=== PATIENT | male | born 1985 | race Caucasian/White ===

== ENCOUNTER 2019-01-19 14:58 | Inpatient (IN) | payer OTHER ==
[~2019-01-19] VITALS: Ht 180.3 cm; Wt 87.1 kg
--- NOTE | 2019-01-19 15:58 | NUR ---
PT C/O INCREASING RIGHT SIDE GROIN PAIN X3 DAYS PER PT HE WENT TO [facility] YESTERDAY WHERE THEY TOLD HIM HE HAD "SWOLLEN LYMPHS" HOWEVER HE LEFT AMA SO HE DID NOT RECEIVE A DX PT AAOX4 RESPS E/U +N -V AT THIS TIME SPOUSE AT BEDSIDE PT GOWNED AND PLACED ON FULL CM
--- NOTE | 2019-01-19 17:00 | NUR ---
PT IN POSITION OF COMFORT AWAITING MSE RESPS E/U
--- NOTE | 2019-01-19 17:52 | NUR ---
PT IN POSITION OF COMFORT AWAITING MSE RESPS E/U
--- NOTE | 2019-01-19 17:53 | NUR ---
PT ASLEEP BUT AROUSABLE RESPS E/U CALL LIGHT WITHIN REACH
--- NOTE | 2019-01-19 18:30 | NUR ---
PT IN POSITION OF COMFORT ASLEEP BUT AROUSABLE RESPS E/U WILL CONTINUE TO MONITOR
--- NOTE | 2019-01-19 18:56 | NUR ---
PT C/O 07/27 PAIN REQUESTING PAIN MEDICATION KEYUR LICEA NOTIFIED
--- NOTE | 2019-01-19 18:59 | NUR ---
PT C/O 07/27 PAIN REQUESTING PAIN MEDICATION MD [place] NOTIFIED
[2019-01-19 19:19] LABS: microscopic required? NO
--- NOTE | 2019-01-19 19:19 | NUR ---
REPORT RECIEVED FROM ABIGAIL NICOLE. PT LAYING IN BED IN POSITION OF COMFORT. 2 BED RAILS UP, BED AND RAILS UP. RESPS E/U, NAD NOTED AT THIS TIME. CLL LIGHT W/IN REACH, FAMILY AT BEDSIDE.
[2019-01-19 19:23] LABS: BASOPHIL % 0.4 % (0-2); PLATELET COUNT 238 x10^3mcL (130-400); RED CELL DISTRIBUTION WIDTH 13.2 % (11.5-14.5)
--- NOTE | 2019-01-19 19:28 | NUR ---
PAIN MEDICATION ADMINISTERED PER MD ORDER
[2019-01-19 19:37] LABS: urine erythrocyte NEGATIVE (NEGATIVE)
[2019-01-19 19:44] LABS: CALCIUM 8.4 mg/dL (8.5-10.1); CARBON DIOXIDE 32.6 mmol/L (21-32); CHLORIDE SERUM 98 mmol/L (98-107); CREATININE SERUM 0.9 mg/dL (0.7-1.3); GFR1 > 60 mL/min; GLUCOSE SERUM 97 mg/dL (74-106); POTASSIUM SERUM 3.5 mmol/L (3.5-5.1); SODIUM SERUM 135 mmol/L (136-145)
[2019-01-19 19:46] LABS: AMPHETAMINE QUAL UR POSITIVE (See below)
[2019-01-19 19:49] LABS: ALKALINE PHOSPHATASE 113 U/L (46-116); ALT/SGPT 52 U/L (16-63); AST/SGOT 39 U/L (15-37); BILIRUBIN TOTAL 0.76 mg/dL (0.20-1.00); TOTAL PROTEIN, SERUM 7.2 g/dL (6.4-8.2)
--- NOTE | 2019-01-19 20:07 | NUR ---
US AT BEDSIDE
--- NOTE | 2019-01-19 20:32 | NUR ---
PT LAYING IN BED, IN POSITION OF COMFORT, 2 BED RAILS UP, BED IN LOW AND LOCKED POSITIO. RESPS E/U, NAD NOTED. CALL LIGHT W/IN REACH. FAMILY AT BEDSIDE.
--- NOTE | 2019-01-19 21:20 | NUR ---
MEDICATION ADMINISTERED PER MD ORDER
--- NOTE | 2019-01-19 21:21 | NUR ---
X-RAY AT BEDSIDE
--- NOTE | 2019-01-19 21:30 | NUR ---
PT AWAKE AND ALERT, LAYING IN POSITION OF COMFORT. 2 BED RAILS UP, BED IN LOW AND LOCKED POSITION. CALL LIGHT W/IN REACH. NAD NOTED.
--- NOTE | 2019-01-19 21:32 | NUR ---
MEDICATION ADMINISTERED PER MD ORDER
--- NOTE | 2019-01-19 21:51 | NUR ---
REPORT GIVEN TO ALEJANDRINA NICOLE
[2019-01-19 22:03] LABS: T3 TOTAL 0.61 ng/mL
[2019-01-19 22:12] LABS: MAGNESIUM 2.3 mg/dL (1.8-2.4); PHOSPHOROUS 3.2 mg/dL (2.5-4.9)
[2019-01-19 22:14] LABS: CHOLESTEROL/HDL RATIO 3.5
[2019-01-19 22:22] LABS: FREE T4 0.86 ng/dL (0.76-1.46); FREE THYROXINE INDEX 2.4 ug/dL (1.4-4.5); T4(THYROXINE) 6.9 ug/dL (4.7-13.3)
[2019-01-19 22:53] VITALS: BP 110/59
--- NOTE | 2019-01-20 01:07 | NUR ---
PT IN BED RESTING WITH EYES CLOSE. GIRLFRIEND AT BED SIDE. BREATHING EVEN AND UNLABORED. NO S/SX OF DISTRESS NOTED. WILL CONTINUE TO MONITOR.
--- NOTE | 2019-01-20 02:55 | NUR ---
PT COMPLAIN OF 7/10 GROIN PAIN. MEDICATED PER EMAR NORCO PO.
--- NOTE | 2019-01-20 05:09 | NUR ---
PER [employer], PT REFUSED MORNING LAB DRAW. PT EDUCATED FOR NEED AND IMPORTANCE OF DRAWING LAB THIS MORNING AND PT AGREED AND VERBALIZED UNDERSTANDING. LAB AT BEDSIDE AT THIS TIME.
[2019-01-20 05:17] VITALS: BP 99/51
--- NOTE | 2019-01-20 06:00 | NUR ---
PT RESTING IN BED. EYES CLOSED. ASILY AROUSED BY VERBAL STIMULI. BREATHING EVEN AND UNLABORED. CHEST RISE AND FALL NOTED. NO S/SX OF DISTRESS NOTED. NO COMPLAINT OF PAIN AT THIS TIME. CALL LIGHT WITHIN REACH. WILL ENDORSE CARE TO ON COMING NURSE.
[2019-01-20 06:02] LABS: BASOPHIL % 0.2 % (0-2); PLATELET COUNT 222 x10^3mcL (130-400); RED CELL DISTRIBUTION WIDTH 13.1 % (11.5-14.5)
[2019-01-20 06:29] LABS: CALCIUM 8.2 mg/dL (8.5-10.1); CARBON DIOXIDE 30.9 mmol/L (21-32); CHLORIDE SERUM 102 mmol/L (98-107); CREATININE SERUM 0.9 mg/dL (0.7-1.3); GFR1 > 60 mL/min; GLUCOSE SERUM 87 mg/dL (74-106); POTASSIUM SERUM 4.4 mmol/L (3.5-5.1); SODIUM SERUM 137 mmol/L (136-145)
--- NOTE | 2019-01-20 07:10 | NUR ---
PT IS LAYING DOWN IN BED RESTING. FRIEND AT BEDSIDE. PT LOOKS TO BE IN NO ACUTE DISTRESS AT THIS TIME. PT STATES REST IS HELPING WITH THE PAIN. IV SITE LOOKS PATENT WITH NO SIGNS OF REDNESS OR SWELLING. BED IN LOWEST POSITION. CALL LIGHT WITHIN REACH. WILL CONTINUE TO MONITOR .
[2019-01-20 08:38] VITALS: BP 98/55
[2019-01-20 11:39] VITALS: BP 130/55
--- NOTE | 2019-01-20 13:35 | NUR ---
PT SITTING UP IN BED ASKING WHEN THE SURGERY WILL BE COMPLETED. CALLED OR AND WAS INFORMED THAT PT WILL BE TAKEN DOWN FOR THE I & D WITHIN THE HOUR. PT STATED DID NOT WANT TO WAIT THAT LONG. PT ASKED TO HAVE THE IV REMOVED AND WOULD LIKE TO LEAVE. PT INFORMED OF THE RISKS OF LEAVING THE HOSPTIAL AMA AND PT VERBALIZED UNDERSTANDING AND WOULD STILL LIKE TO LEAVE. DR. PEREZ INFORMED AND WENT INTO ROOM TO TALK TO PT. DR. PEREZ INFORMED PT OF RISKS OF LEAVING AMA AND PT CONTINUED TO STATE THAT HE IS GOING TO LEAVE AND DOES NOT WANT THE I & D COMPLETED. IV REMOVED AND CATHETER FULLY INTACT. PT SIGNED AMA FORM AND WALKED OUT WITH FRIEND.
== END 2019-01-20 13:35 | disposition left against medical advice (07) | DRG 383 ==
LOC: ED 14:58 → MU 20:59
PROVIDERS: Emergency Medicine; ADMIT Family Medicine
DX: L02.214 Cutaneous abscess of groin (principal); E44.0 Moderate protein-calorie malnutrition; R73.03 Prediabetes; B18.2 Chronic viral hepatitis C; F12.10 Cannabis abuse, uncomplicated; R74.0 Nonspecific elevation of levels of transaminase and lactic acid dehydrogenase [LDH]; F17.210 Nicotine dependence, cigarettes, uncomplicated; F15.10 Other stimulant abuse, uncomplicated; F11.10 Opioid abuse, uncomplicated; E83.51 Hypocalcemia; Z53.21 Procedure and treatment not carried out due to patient leaving prior to being seen by health care provider
CPT/HCPCS: 84439; J0690; J0696; J2270; J3370; J7030; J7050; Q0092; Q0162; Q9967

== ENCOUNTER 2019-01-26 02:28 | Inpatient (IN) | payer OTHER ==
[~2019-01-26] VITALS: Ht 180.3 cm; Wt 83.1 kg
[2019-01-26 02:37] VITALS: Ht 180.3 cm; Wt 83.1 kg
[2019-01-26 04:55] LABS: CALCIUM 8.6 mg/dL (8.5-10.1); CARBON DIOXIDE 30.1 mmol/L (21-32); CHLORIDE SERUM 100 mmol/L (98-107); GFR1 > 60 mL/min; GLUCOSE SERUM 100 mg/dL (74-106); POTASSIUM SERUM 3.8 mmol/L (3.5-5.1); SODIUM SERUM 138 mmol/L (136-145)
[2019-01-26 05:02] LABS: BASOPHIL % 0.4 % (0-2); RED CELL DISTRIBUTION WIDTH 13.3 % (11.5-14.5)
[2019-01-26 05:05] VITALS: BP 103/58
[2019-01-26 05:08] LABS: T3 TOTAL 1.32 ng/mL
[2019-01-26 05:10] LABS: ALBUMIN 3.1 g/dL (3.4-5.0); ALKALINE PHOSPHATASE 90 U/L (46-116); ALT/SGPT 77 U/L (16-63); AST/SGOT 41 U/L (15-37); TOTAL PROTEIN, SERUM 7.3 g/dL (6.4-8.2)
[2019-01-26 05:11] LABS: FREE T4 0.87 ng/dL (0.76-1.46); FREE THYROXINE INDEX 2.8 ug/dL (1.4-4.5); T4(THYROXINE) 7.8 ug/dL (4.7-13.3)
[2019-01-26 05:13] LABS: MAGNESIUM 2.2 mg/dL (1.8-2.4); PHOSPHOROUS 3.5 mg/dL (2.5-4.9)
[2019-01-26 05:15] LABS: CHOLESTEROL/HDL RATIO 4.3; PLATELET COUNT 401 x10^3mcL (130-400)
[2019-01-26 15:14] LABS: UA SPECIFIC GRAVITY 1.025 (1.005-1.035); microscopic required? YES; urine erythrocyte NEGATIVE (NEGATIVE)
[2019-01-26 15:30] LABS: AMPHETAMINE QUAL UR POSITIVE (See below)
[2019-01-26 17:33] VITALS: BP 116/46
[2019-01-26 20:18] VITALS: BP 102/48
[2019-01-26 20:34] VITALS: BP 92/35
[2019-01-26 21:50] VITALS: BP 108/50
[2019-01-27 00:53] VITALS: BP 110/52
[2019-01-27 05:56] VITALS: BP 99/51
[2019-01-27 06:10] LABS: CALCIUM 8.3 mg/dL (8.5-10.1); CARBON DIOXIDE 26.8 mmol/L (21-32); CHLORIDE SERUM 104 mmol/L (98-107); CREATININE SERUM 0.9 mg/dL (0.7-1.3); GFR1 > 60 mL/min; GLUCOSE SERUM 129 mg/dL (74-106); POTASSIUM SERUM 4.5 mmol/L (3.5-5.1); SODIUM SERUM 138 mmol/L (136-145)
[2019-01-27 06:46] LABS: BASOPHIL % 0.2 % (0-2); PLATELET COUNT 366 x10^3mcL (130-400); RED CELL DISTRIBUTION WIDTH 13.5 % (11.5-14.5)
[2019-01-27 10:40] VITALS: BP 103/50
[2019-01-27] MEDS ORDERED: KEFLEX500 M1 PO (10:53)
[2019-01-27 11:25] VITALS: BP 103/50
== END 2019-01-27 12:36 | disposition home or self-care (01) | DRG 364 ==
LOC: ED 02:28 → MU 03:56
PROVIDERS: Emergency Medicine; Surgery; ADMIT Internal Medicine
PROC: 0Y950ZZ Drainage of Right Inguinal Region, Open Approach (ICD-10-PCS; 2019-01-26)
PROC: 07BH0ZX Excision of Right Inguinal Lymphatic, Open Approach, Diagnostic (ICD-10-PCS; principal; 2019-01-26 08:00)
DX: L02.214 Cutaneous abscess of groin (principal); E44.0 Moderate protein-calorie malnutrition; B19.20 Unspecified viral hepatitis C without hepatic coma; F17.200 Nicotine dependence, unspecified, uncomplicated; R73.03 Prediabetes; Z68.25 Body mass index [BMI] 25.0-25.9, adult
CPT/HCPCS: 84439; J1885; J2175; J2250; J2543; J3010; J3490; J7030

== ENCOUNTER 2019-06-14 01:31 | Emergency (ER) | payer OTHER ==
[~2019-06-14] VITALS: Ht 180.3 cm; Wt 78.5 kg
[~2019-06-14 01:31] MED LIST: KEFLEX500 M1 PO
[2019-06-14 01:36] VITALS: Ht 180.3 cm; Wt 78.5 kg
[2019-06-14 02:40] VITALS: BP 113/69
== END 2019-06-14 02:40 | disposition home or self-care (01) ==
LOC: ED 01:31
DX: L03.113 Cellulitis of right upper limb (principal); Z98.890 Other specified postprocedural states
CPT/HCPCS: J0696